=== PATIENT | female | born 1945 | race Caucasian/White ===

== ENCOUNTER 2018-03-28 06:39 | Day surgery (SDC) | payer MEDICARE, SELFPAY ==
[2018-03-22 15:00] VITALS: BMI 22.2
[2018-03-28] VITALS (7 sets, daily range): BP systolic 120–154; BP diastolic 45–74; PULSE 83–108; RESP 15–20; TEMP 36.1–36.6; O2SAT 95–100; BMI 22.2
[2018-03-28] MEDS: LACTATED RINGERS 1,000 ML 100 ML IV (07:28)
--- NOTE | 2018-03-28 07:46 | PM.PREOP ---
Pre-operative Note Interval Note History & Physical reviewed/Exam performed by Physician: Yes Changes to H&P: No
[2018-03-28] MEDS: CEFAZOLIN 2 GM/100 ML FROZ.PIGGY IV (07:51)
--- NOTE | 2018-03-28 08:15 | SUR.OPER ---
Lithotomy on padded OR bed, head on pillow, arms secured on padded arm boards at <90 degrees abduction. Legs secured in padded yellow fins stirrups.
[2018-03-28] MEDS: BUPIVACAINE 0.25% W/ EPI VIAL 50 ML INJ (08:19)
--- NOTE | 2018-03-28 08:52 | SUR.PHASEI ---
Bedside report given to GRETTA Zhou. Pt in stable condition, vss. Transferred care of pt to Gretta Zhou at this time.
--- NOTE | 2018-03-28 09:16 | P.OP_ITS ---
Operative Date/Time/Diagnoses Date of procedure: 03/28/18 Time of procedure: 09:10 Pre-op diagnosis: Stress urinary incontinence Increased urethrovesical angle with Valsalva Post-op diagnosis: same Procedure: Procedures Operation Date: 03/28/18 07:45 Actual Procedures Side Surgeon p TVT w/Cystoscopy Not Applicable Junie Page MD Indications: Stress urinary incontinence Increased urethrovesical angle with Valsalva Surgeon: Junie Page Candle Wicker: Teofilo Griffith Anesthesia Type: General Operative Notes Findings: Increased urethrovesical angle with Valsalva Closure Type: primary Specimen(s): none Applied: catheter (Removed at the end of the case) Estimated blood loss (mL): 15 Blood products transfused: none Procedure in detail: The patient was taken to the operating room where she was placed in the dorsal supine position. After adequate LMA general anesthesia was achieved, she was placed in the dorsal lithotomy position, and prepped and draped in the usual sterile fashion. Her thighs were placed in a position parallel to the floor. The bladder was emptied with a catheter. 25 cc of 0.25 % Marcaine diluted with 75 cc of sterile saline were injected above the pubic symphysis into the space of Retzius. Attention was then turned to the vagina where a speculum was placed into vagina. Allis clamps were placed at the lateral edges of the mucosa where the proposed incision was to be made. 4 cc of cord percent Marcaine with epinephrine were injected submucosally approximately 1-1/2 cm away from the urethral meatus. A 1 cm incision was made and was dissected out laterally with the Metzenbaum scissors. The rigid catheter was placed into the bladder and the bladder neck was retracted away from the patient's right side. 10 cc of 0.25% Marcaine with epinephrine were injected in the proposed site of the TVT on the right side. This was repeated on the patient's left side with the bladder neck retracted away from the patient 's left side. A hemostat was placed over the plastic in the midline of TVT. With the bladder neck retracted away from the patient's right side, the TVT was directed towards the patient's right shoulder. After perforating the urogenital diaphragm the TVT applicator was brought up behind the pubic symphysis out through the skin approximately 2 cm from the midline. The TVT introducer was grasped with a Eliazar. This was all repeated on the patient's left side with the bladder neck retracted away from the patient's left side. The rigid portion of the catheter was removed and the bladder was filled with 240 cc of sterile water. The catheter was removed from the bladder. A cystoscopy was performed showing a bubble in the dome of the bladder and no perforation of the TVT applicator or TVT. The TVT was pulled up and the patient was made to cough. The TVT was slowly tightened until there was only 1 or 2 drops of urine from the urethral meatus with Valsalva. The plastic sheaths covering the TVT were removed after the hemostat was removed from the midline. The TVT was cut below the skin line with care to not over tighten. The vaginal mucosa was closed with 3 O Vicryl in a running interlocking fashion. Hemostasis was achieved. The suprapubic incisions were closed with surgical glue. They were then covered with Steri-Strips. Approximately 120 cc of sterile water were removed from the bladder. Sponge, lap, and instrument counts were correct x2. The patient tolerated the procedure well and was taken to PACU in stable condition. Complications: none Post-operative Condition: stable Disposition: PACU Plan for aftercare: Home after demonstration of adequate bladder emptying
--- NOTE | 2018-03-28 11:32 | SUR.PHASEII ---
Pt up to BR x 2, steady when up. Initial bladder scan 632 ml, voided 200, dr shah made aware, order for I&O, pt wanting to try to used BR again, up to BR and voided greater than 450mls, scanner showed 13ms, dr shah made aware, stated pt ok to go home. Skin on back red raised with no open areas. Pt stated it was from a heating pad.
== END 2018-03-28 11:35 | disposition home or self-care (01) ==
PROVIDERS: PCP Physician Assistant Medical; Visit Provider Obstetrics & Gynecology
PROC: 0TSD0ZZ Reposition Urethra, Open Approach (ICD-10-PCS; CPT 57288; principal; 2018-03-28 07:45)
DX: N39.3 Stress incontinence (female) (male) (principal)
CPT/HCPCS: 57288; C1771; J0690; J1100; J1885; J2704

== ENCOUNTER 2022-06-04 08:38 | Day surgery (SDC) | payer MEDICARE, SELFPAY ==
[2022-06-04 09:02] VITALS: BP 139/68; PULSE 77; RESP 20; TEMP 36.6; O2SAT 97; BMI 24.2
[2022-06-04] MEDS: LACTATED RINGERS 1,000 ML 150 ML IV (09:02)
--- NOTE | 2022-06-04 09:34 | PM.HP.1 ---
History of Present Illness History of Present Illness Date Patient Seen: 06/04/22 Time Patient Seen: 09:34 Chief complaint: Colonoscopy Narrative: Kamala is a 69-year-old woman who is here for colonoscopy. She had 1 about 10 years ago that was normal. Patient History Surgical History (Updated 08/31/17 @ 14:51 by Adrianna Mccoy LPN) S/P cataract extraction S/P cholecystectomy Family & Social History Social History: household members none Tobacco & Substance use: Smoking Status Never smoker alcohol intake never Substance Use Type does not use Meds Home Medications and Allergies Home Medications Medication Instructions Recorded Confirmed Type bupropion HCl 200 mg tablet,12 hr 100 mg PO DAILY 08/31/17 06/04/22 History sustained-release (Wellbutrin SR) liothyronine 5 mcg tablet (Cytomel) 5 mcg PO DAILY 08/31/17 06/04/22 History omeprazole 20 mg capsule,delayed 20 mg PO DAILY 08/31/17 06/04/22 History release ascorbic acid (vitamin C) 500 mg 500 mg PO DAILY 03/22/18 06/04/22 History capsule calcium carbonate 600 mg calcium 600 mg PO BID 03/22/18 06/04/22 History (1,500 mg) tablet (Calcium) cholecalciferol (vitamin D3) 50 2,000 unit PO DAILY 03/22/18 06/04/22 History mcg (2,000 unit) capsule duloxetine 60 mg capsule,delayed 60 mg PO DAILY 03/22/18 06/04/22 History release ferrous sulfate 325 mg (65 mg 325 mg PO DAILY 03/22/18 06/04/22 History iron) tablet lysine 500 mg tablet 500 mg PO DAILY 03/22/18 06/04/22 History melatonin 5 mg capsule 5 mg PO BEDTIME 03/22/18 06/04/22 History multivitamin 1 tab PO DAILY 03/22/18 06/04/22 History primidone 50 mg tablet 50 mg PO BEDTIME 03/22/18 06/04/22 History Allergies Allergy/AdvReac Type Severity Reaction Status Date / Time Sulfa (Sulfonamide Allergy uncertian Verified 06/04/22 08:52 Antibiotics) Exam Vital Signs (past 8 hours): - 06/04/22 09:02 Temperature 98 F Pulse Rate 77 Respiratory Rate 20 Blood Pressure 139/68 Pulse Oximetry 97 Oxygen Delivery Method Room Air Oxygen Delivery Method Room Air Const General: No acute distress Assessment & Plan Assessment and plan (1) Colon cancer screening: Status: Acute Plan We reviewed the risks and benefits of colonoscopy and she would proceed
--- NOTE | 2022-06-04 10:37 | PM.OP.COLON ---
Operative Date/Time/Diagnoses Date of procedure: 06/04/22 Time of procedure: 10:37 Pre-op diagnosis: Colon cancer screening Post-op diagnosis: same Procedure & Clinicians Study performed: Colonoscopy Same procedure as scheduled: Yes Surgeon: Nitish Yeager Procedure Notes Procedure in detail: Surgeon: Nitish Yeager MD Anesthesia: Dr. Newby Procedure: The patient was brought to the endoscopy suite, placed in left lateral decubitus position. The patient was connected to monitoring devices. A time-out was performed. Sedation was administered. Once the patient was adequately sedated, a digital rectal exam was performed and was normal. The scope was then inserted and advanced to the cecum where the appendiceal orifice was identified and photographed. The scope was then slowly withdrawn over greater than 6 minutes. The mucosa was thoroughly inspected. No polyps were seen. The scope was retroflexed in the rectum. No abnormalities were seen. The scope was straightened and removed. The patient was awakened and brought to recovery. Scope withdrawal time: 6 minute Sedation time: 19 minute EBL: 0 Findings: Normal colon Post-procedure Plan for aftercare: You can stop colon cancer screening Disposition: PACU
[2022-06-04 10:41] VITALS: BP 146/65; PULSE 93; RESP 19; TEMP 36.9; O2SAT 98
[2022-06-04 10:49] VITALS: BP 134/79; PULSE 69; RESP 16; TEMP 36.7; O2SAT 98
== END 2022-06-04 10:55 | disposition home or self-care (01) ==
PROVIDERS: PCP Family Medicine; Referring Provider Surgery; Visit Provider Surgery
PROC: 0DJD8ZZ Inspection of Lower Intestinal Tract, Via Natural or Artificial Opening Endoscopic (ICD-10-PCS; CPT 45378; principal; 2022-06-04 09:45)
DX: Z12.11 Encounter for screening for malignant neoplasm of colon (principal)
CPT/HCPCS: G0121; J2704